=== PATIENT | female | born 1980 | race Caucasian/White ===

== ENCOUNTER 2016-11-16 16:40 | Emergency (ER) | payer OTHER ==
[~2016-11-16] VITALS: Ht 170.2 cm; Wt 99.0 kg
[2016-11-16 17:32] VITALS: BP 139/87
== END 2016-11-16 18:35 | disposition home or self-care (01) ==
LOC: ED 16:40
DX: J02.9 Acute pharyngitis, unspecified (principal)

== ENCOUNTER 2017-03-02 13:27 | Emergency (ER) | payer OTHER ==
[2017-03-02 16:05] VITALS: BP 115/72
== END 2017-03-02 16:06 | disposition home or self-care (01) ==
LOC: ED 13:27
DX: J20.9 Acute bronchitis, unspecified (principal)

== ENCOUNTER 2017-05-15 10:21 | Emergency (ER) | payer OTHER ==
[~2017-05-15] VITALS: Ht 170.2 cm; Wt 126.1 kg
[2017-05-15 12:20] VITALS: BP 116/76
== END 2017-05-15 13:03 | disposition home or self-care (01) ==
LOC: ED 10:21
DX: M54.5 Low back pain (principal); M25.562 Pain in left knee; E66.9 Obesity, unspecified
CPT/HCPCS: J1100; J1885

== ENCOUNTER 2017-08-22 22:18 | Emergency (ER) | payer OTHER ==
[~2017-08-22] VITALS: Ht 170.2 cm; Wt 102.5 kg
[2017-08-22 22:33] VITALS: Ht 170.2 cm; Wt 102.5 kg
[2017-08-23 02:00] VITALS: BP 137/97
== END 2017-08-23 02:00 | disposition home or self-care (01) ==
LOC: ED 22:18
DX: J03.90 Acute tonsillitis, unspecified (principal)

== ENCOUNTER 2017-11-20 14:17 | Emergency (ER) | payer OTHER ==
[~2017-11-20] VITALS: Ht 167.6 cm; Wt 105.2 kg
[2017-11-20 14:23] VITALS: Ht 167.6 cm; Wt 105.2 kg
[2017-11-20 15:10] VITALS: BP 139/85
== END 2017-11-20 15:10 | disposition home or self-care (01) ==
LOC: ED 14:17
DX: S13.4XXA Sprain of ligaments of cervical spine, initial encounter (principal); S39.012A Strain of muscle, fascia and tendon of lower back, initial encounter; S50.12XA Contusion of left forearm, initial encounter; V43.92XA Unspecified car occupant injured in collision with other type car in traffic accident, initial encounter; Y93.89 Activity, other specified; Y92.89 Other specified places as the place of occurrence of the external cause; Y99.8 Other external cause status
CPT/HCPCS: Q0092

== ENCOUNTER 2018-07-27 08:29 | Emergency (ER) | payer SELFPAY ==
[~2018-07-27] VITALS: Ht 167.6 cm; Wt 107.0 kg
[2018-07-27 08:33] VITALS: Ht 167.6 cm; Wt 107.0 kg
[2018-07-27 10:00] VITALS: BP 110/69
== END 2018-07-27 10:14 | disposition home or self-care (01) ==
LOC: ED 08:29
DX: J20.9 Acute bronchitis, unspecified (principal); Z98.890 Other specified postprocedural states